=== PATIENT | male | born 1970 | race Hispanic/Latino ===

== ENCOUNTER 2021-09-26 00:34 | Emergency (ER) | payer BC, OTHER ==
[~2021-09-26] VITALS: Ht 170.2 cm; Wt 101.6 kg
[2021-09-26 01:16] LABS: BASOPHILS % (AUTO) 0.3 % (0.0-5.0); HEMATOCRIT 42.9 % (42-54); LYMPHOCYTES % (AUTO) 21.4 % (21.0-51.0); MEAN CORPUSCULAR HEMOGLOBIN 28.2 pg (27.0-33.0); MEAN CORPUSCULAR HGB CONC 33.3 g/dL (32.0-36.0); MEAN CORPUSCULAR VOLUME 84.6 fL (79-99); MONOCYTES % (AUTO) 7.3 % (3.0-13.0); NEUTROPHILS % (AUTO) 69.6 % (40.0-77.0); PLATELET COUNT (AUTO) 265 K/uL (130-400); RED BLOOD CELL COUNT(AUTO) 5.07 MIL/uL (4.50-6.20); RED CELL DISTRIBUTION WIDTH 13.6 % (11.0-15.5); WHITE BLOOD COUNT (AUTO) 7.9 K/uL (4.8-10.8)
[2021-09-26 01:29] LABS: CREATININE 1.3 mg/dL (0.5-1.5); POTASSIUM 3.4 mmol/L (3.5-5.1)
[2021-09-26 01:33] LABS: ALBUMIN 3.8 g/dL (3.5-5.0); BILIRUBIN,TOTAL 0.5 mg/dL (0.2-1.0); TOTAL PROTEIN, SERUM 7.4 g/dL (6.0-8.3)
[2021-09-26 01:49] LABS: INR 0.98 (0.85-1.15); PROTHROMBIN TIME 10.7 SEC (9.6-11.6)
[2021-09-26 01:50] LABS: PARTIAL THROMBOPLASTIN TIME 28.5 SEC (26.3-35.5)
[2021-09-26 02:06] LABS: INFLUENZA TYPE A NEGATIVE FOR TYPE A (NEG)
[2021-09-26 02:07] LABS: INFLUENZA TYPE B NEGATIVE FOR TYPE B (NEG)
[2021-09-26] MEDS ORDERED: ONDANSETRON 4MG INJ IVP ONE (04:00)
[2021-09-26] MEDS ORDERED: 0.9%NACL 1000ML 1,000 ML IV ONE ×2 (04:00)
[2021-09-26 05:12] VITALS: BP 122/84
[2021-09-26 05:38] LABS: APPEARANCE,URINE Clear (CLEAR); BILIRUBIN,URINE Negative (NEGATIVE); COLOR,URINE Yellow (YELLOW); GLUCOSE, URINE (UA) Negative (NEGATIVE); KETONES,URINE Trace mg/dL (NEGATIVE); LEUKOCYTE ESTERASE ,URINE Negative (NEGATIVE); NITRATE,URINE Negative (NEGATIVE); OCCULT BLOOD,URINE Negative (NEGATIVE); PH,URINE 5.5 (5.0-8.0); PROTEIN,URINE Trace mg/dL (NEGATIVE)
[2021-09-26 05:45] LABS: AMPHET/METH SCREEN,URINE NEGATIVE (NEGATIVE); BARBITURATE SCREEN, URINE NEGATIVE (NEGATIVE); BENZODIAZEPINES SCREEN,URINE NEGATIVE (NEGATIVE); CANNABINOID SCREEN,URINE NEGATIVE (NEGATIVE); COCAINE SCREEN,URINE NEGATIVE (NEGATIVE); OPIATE SCREEN,URINE NEGATIVE (NEGATIVE); PHENCYCLIDINE SCREEN,URINE NEGATIVE (NEGATIVE)
[2021-09-26 05:49] LABS: RBC,URINE 0-1 /HPF (0-1)
[2021-09-26] MEDS ORDERED: BENZ-39 PO (05:49)
[2021-09-26] MEDS ORDERED: ONDA4TAB10 PO (05:49)
[2021-09-26] MEDS ORDERED: METO-296 PO (05:49)
[2021-09-26 05:50] LABS: BACTERIA,URINE Rare /HPF (None Seen); SQUAMOUS EPITHELIAL CELL,UR 0-2 /HPF (0-2); WBC,URINE 0-1 /HPF (0-1)
== END 2021-09-26 05:58 | disposition home or self-care (01) ==
LOC: EDH 00:34
DX: B34.9 Viral infection, unspecified (principal); E86.9 Volume depletion, unspecified; I10 Essential (primary) hypertension; Z20.822 Contact with and (suspected) exposure to COVID-19; Z79.899 Other long term (current) drug therapy
CPT/HCPCS: 36415; 71045; 80053; 80305; 81001; 83690; 84484; 85025; 85610; 85730; 87635; 87804 ×2; 96361 ×2; 96374; 99284; C9803; J2405; J7030 ×2

== ENCOUNTER 2021-12-23 07:00 | Day surgery (SDC) | payer OTHER ==
[2021-12-20 10:23] VITALS: BP 139/86
[2021-12-20 10:27] LABS: BASOPHILS % (AUTO) 0.5 % (0.0-5.0); EOSINOPHILS % (AUTO) 1.6 % (0.0-8.0); HEMATOCRIT 44.4 % (42-54); LYMPHOCYTES % (AUTO) 18.6 % (21.0-51.0); MEAN CORPUSCULAR HEMOGLOBIN 28.2 pg (27.0-33.0); MEAN CORPUSCULAR HGB CONC 32.7 g/dL (32.0-36.0); MEAN CORPUSCULAR VOLUME 86.2 fL (79-99); MONOCYTES % (AUTO) 6.1 % (3.0-13.0); NEUTROPHILS % (AUTO) 72.6 % (40.0-77.0); PLATELET COUNT (AUTO) 236 K/uL (130-400); RED BLOOD CELL COUNT(AUTO) 5.15 MIL/uL (4.50-6.20); RED CELL DISTRIBUTION WIDTH 13.6 % (11.0-15.5); WHITE BLOOD COUNT (AUTO) 6.2 K/uL (4.8-10.8)
[2021-12-20 10:39] LABS: CREATININE 0.9 mg/dL (0.5-1.5)
[~2021-12-23] VITALS: Ht 167.6 cm; Wt 102.2 kg
[2021-12-23] VITALS (16 sets, daily range): BP systolic 90–146; BP diastolic 51–80
[~2021-12-23 07:00] MED LIST: CEFAZOLIN SODIUM 1 GM VIAL IVP SCH; CHOL100046 PO; HYDR25TA PO; LOSA100T58 PO; MULT-1258 PO
[2021-12-23] MEDS ORDERED: LACTATED RINGERS 1000ML 1,000 ML IV ONE (07:22)
[2021-12-23] MEDS ORDERED: DEXAMETHASONE SOD PHOSPHATE 10MG/ML 1ML VIAL ONE (07:30)
[2021-12-23] MEDS ORDERED: LIDOCAINE PF 100MG/5ML (2%) SYRINGE 5ML ONE (07:30)
[2021-12-23] MEDS ORDERED: ONDANSETRON 4MG INJ ONE (07:30)
[2021-12-23] MEDS ORDERED: MIDAZOLAM HCL 1 MG/ML 2ML VIAL ONE (07:30)
[2021-12-23] MEDS ORDERED: SUCCINYLCHOLINE CHLORIDE 20 MG/ML 10 ML VIAL ONE (07:30)
[2021-12-23] MEDS ORDERED: NEOSTIGMINE 5MG/5ML SYR IV ONE (07:31)
[2021-12-23] MEDS ORDERED: GLYCOPYRROLATE 1 MG/5 ML SYRINGE ONE (07:31)
[2021-12-23] MEDS ORDERED: PROPOFOL 10 MG/ML 20ML VIAL IV ONE ×2 (07:31→08:53)
[2021-12-23] MEDS ORDERED: ROCURONIUM 10MG/1ML SYR 10 MG/ML ML ONE (07:31)
[2021-12-23] MEDS ORDERED: FENTANYL CITRATE PF 50 MCG/1 ML 2ML VIAL ONE ×2 (07:32→09:15)
[2021-12-23] MEDS ORDERED: NAPR220C15 PO (07:33)
[2021-12-23] MEDS ORDERED: ROPIVACAINE 0.5% 5MG/ML 30ML IJ ONE (07:53)
[2021-12-23] MEDS ORDERED: CEPH500B PO (09:12)
[2021-12-23] MEDS ORDERED: ACET1TAB25 PO (09:12)
[2021-12-23] MEDS ORDERED: KETOROLAC 30MG VIAL (30MG/ML) ONE (10:51)
== END 2021-12-23 11:50 | disposition home or self-care (01) ==
LOC: DAH 07:00
PROVIDERS: ATTEND Orthopaedic Surgery
DX: M23.321 Other meniscus derangements, posterior horn of medial meniscus, right knee (principal); M23.341 Other meniscus derangements, anterior horn of lateral meniscus, right knee; Z20.822 Contact with and (suspected) exposure to COVID-19; M17.11 Unilateral primary osteoarthritis, right knee; G47.33 Obstructive sleep apnea (adult) (pediatric); I10 Essential (primary) hypertension; K21.9 Gastro-esophageal reflux disease without esophagitis; Z98.890 Other specified postprocedural states; Z87.891 Personal history of nicotine dependence; Z83.3 Family history of diabetes mellitus; Z82.49 Family history of ischemic heart disease and other diseases of the circulatory system
CPT/HCPCS: 29880; 36415; 80048; 85025; 87635; A4215; A4221; A4222; A4223; A4649; A4657; A4663; A4930 ×2; A5120; A6223; C9803; J0330; J0690; J1100; J1885; J2001; J2250; J2405; J2704 ×2; J2710; J3010 ×2; J3490; J7120; J2795

== ENCOUNTER 2024-03-23 23:09 | Emergency (ER) | payer OTHER ==
[~2024-03-23] VITALS: Ht 167.6 cm; Wt 93.0 kg
[~2024-03-23 23:09] MED LIST changes: +ACET-2079 PO; -CEFAZOLIN SODIUM 1 GM VIAL IVP SCH; +CEPH500B PO; -LOSA100T58 PO; +LOSA100T59 PO; +NAPR220C15 PO
[2024-03-23 23:10] VITALS: BP 115/71; PULSE 66; RESP 20
[2024-03-23] MEDS: LIDOCAINE HCL 1% 20 ML VIAL INJ STA (23:36)
[2024-03-23] MEDS: LIDOCAINE HCL 1% 20 ML VIAL INJ SCH (23:36)
[2024-03-24] MEDS ORDERED: CEPH500B PO (00:20)
[2024-03-24] MEDS: NEOMY SULF/BACITRA/POLYMYXIN B 1 EACH PACKET TP STA (00:20)
[2024-03-24] MEDS: DIPH,PERTUSS(ACELL),TET VAC/PF 0.5 ML VIAL IM ONE (00:24)
== END 2024-03-24 00:28 | disposition home or self-care (01) ==
LOC: EDH 23:09
DX: S61.011A Laceration without foreign body of right thumb without damage to nail, initial encounter (principal); I10 Essential (primary) hypertension; X78.8XXA Intentional self-harm by other sharp object, initial encounter; Y93.89 Activity, other specified; Y92.89 Other specified places as the place of occurrence of the external cause; Y99.8 Other external cause status
CPT/HCPCS: 12002

== ENCOUNTER 2024-05-15 19:12 | Emergency (ER) | payer OTHER ==
[~2024-05-15] VITALS: Ht 162.6 cm; Wt 92.5 kg
[2024-05-15 19:29] LABS: APPEARANCE,URINE CLEAR (CLEAR); BILIRUBIN,URINE NEGATIVE (NEGATIVE); COLOR,URINE YELLOW (YELLOW); GLUCOSE, URINE (UA) NEGATIVE (NEGATIVE); KETONES,URINE NEGATIVE (NEGATIVE); LEUKOCYTE ESTERASE ,URINE NEGATIVE Leu/uL (NEGATIVE); NITRATE,URINE NEGATIVE (NEGATIVE); OCCULT BLOOD,URINE NEGATIVE (NEGATIVE); PROTEIN,URINE 10 mg/dL (NEGATIVE); UROBILINOGEN,URINE 0.2 mg/dL (0.2-1.0)
[2024-05-15 19:36] LABS: ADD UA MICROSCOPIC YES
[2024-05-15 19:38] LABS: BACTERIA,URINE RARE /HPF (None Seen); MUCUS,URINE RARE LPF (None Seen); SQUAMOUS EPITHELIAL CELL,UR RARE /HPF (0-2); WBC,URINE 0-1 /HPF (0-1)
[2024-05-15 19:41] LABS: BASOPHILS # (AUTO) 0.02 K/uL (0.00-0.20); BASOPHILS % (AUTO) 0.3 % (0.0-5.0); EOSINOPHILS # (AUTO) 0.07 K/uL (0.00-0.70); EOSINOPHILS % (AUTO) 0.9 % (0.0-8.0); HEMATOCRIT 42.4 % (42-54); IMMATURE GRANULOCYTE ABSOLUTE 0.02 K/uL (0-1); LYMPHOCYTES # (AUTO) 1.2 K/uL (1.0-4.8); LYMPHOCYTES % (AUTO) 15.6 % (21.0-51.0); MEAN CORPUSCULAR HEMOGLOBIN 29.3 pg (27.0-33.0); MEAN CORPUSCULAR HGB CONC 34.2 g/dL (32.0-36.0); MEAN CORPUSCULAR VOLUME 85.7 fL (79-99); MONOCYTES # (AUTO) 0.4 K/uL (0.1-1.0); MONOCYTES % (AUTO) 5.5 % (3.0-13.0); NEUTROPHILS # (AUTO) 5.8 K/uL (1.8-7.7); NEUTROPHILS % (AUTO) 77.4 % (40.0-77.0); PLATELET COUNT (AUTO) 241 K/uL (130-400); RED BLOOD CELL COUNT(AUTO) 4.95 MIL/uL (4.50-6.20); RED CELL DISTRIBUTION WIDTH 13.3 % (11.0-15.5); WHITE BLOOD COUNT (AUTO) 7.5 K/uL (4.8-10.8)
[2024-05-15 19:53] LABS: ALBUMIN 3.9 g/dL (3.5-5.0); BILIRUBIN,TOTAL 0.7 mg/dL (0.2-1.0); CREATININE 0.9 mg/dL (0.5-1.3); POTASSIUM 3.1 mmol/L (3.5-5.1); TOTAL PROTEIN, SERUM 7.2 g/dL (6.0-8.3)
[2024-05-15] MEDS: 0.9%NACL 1000ML 1,000 ML IV ONE (20:52)
[2024-05-15] MEDS: POTASSIUM BICARB/CIT AC 25 MEQ TABLET.EFF PO ONE (20:52)
[2024-05-15] MEDS: ACETAMINOPHEN 500 MG TABLET PO ONE (20:53)
[2024-05-15] MEDS: KETOROLAC 30MG VIAL (30MG/ML) IVP ONE (20:53)
[2024-05-15 22:05] VITALS: BP 120/70; PULSE 74; RESP 22; O2SAT 95
== END 2024-05-15 22:10 | disposition home or self-care (01) ==
LOC: EDH 19:12
DX: R51.9 Headache, unspecified (principal); E87.6 Hypokalemia; I10 Essential (primary) hypertension; Z79.899 Other long term (current) drug therapy
CPT/HCPCS: 99285; 96374; 70450; 84484; 80053; 85025; 81001; 36415; 93005; J7030; J1885

== ENCOUNTER 2024-09-26 00:04 | Emergency (ER) | payer OTHER ==
[~2024-09-26] VITALS: Ht 167.6 cm; Wt 95.3 kg
--- NOTE | 2024-09-26 00:07 | ERN ---
ED Note History of Present Illness Stated Complaint: COUGH CHEST PAIN Chief Complaint: Chest Pain Time Seen by MD: 00:06 Time Seen by Midlevel: 00:06 Dictation: Patient is a 54-year-old male with a history of hypertension, bilateral knee surgery who presents to the emergency department with complaints of a nonproductive cough, chest pain onset two weeks ago. Patient reports pain is on and off and only last a few seconds. Reports pain worse with palpation. Patient denies any fevers, , shortness of breath. Allergies: Coded Allergies: fish oil (Unverified Allergy, Unknown, 09/26/24) Home Meds Active Scripts Cephalexin Monohydrate (Keflex) 500 Mg Cap, 500 MG PO TID for 5 Days, #15 CAP Prov:SUSY LLOYD 03/24/24 Acetaminophen with Codeine (Acetaminophen-Cod #3 Tablet) 1 Each Tablet, 1 EACH PO Q6HPRN PRN for ACUTE POST-OP PAIN (G89.18), #28 TAB 0 Refills Prov:SARAH RAY MD 12/23/21 Cephalexin Monohydrate (Keflex) 500 Mg Cap, 500 MG PO Q8H for 2 Days, #7 CAP 0 Refills Prov:SARAH RAY MD 12/23/21 Reported Medications Naproxen Sodium (Aleve) 220 Mg Capsule, 220 MG PO AD PRN for PAIN, CAP 12/23/21 Cholecalciferol (Vitamin D3) (Vitamin D3) 25 Mcg Capsule, 25 MCG PO DAILY, CAP 12/20/21 Multivits-Min/FA/Lycopene/Lut (Centrum Silver Tablet) 1 Each Tablet, 1 EACH PO DAILY, TAB 12/20/21 Losartan Potassium (Losartan Potassium) 100 Mg Tablet, 100 MG PO DAILY, TAB 12/20/21 Hydrochlorothiazide (Hydrochlorothiazide) 25 Mg Tablet, 25 MG PO DAILY, TAB 12/20/21 Past Medical History Past Medical History: Hypertension Surgical History: Other Surgical History Other: BILATERAL KNEE RN Note Reviewed/Agreed w/PFSH: Yes Review of System Dictation Constitutional: Negative for fever,chills, and weight loss Eyes: Negative for injury, pain,redness, and discharge ENT: Negative for injury,pain or swelling Cardiovascular: Negative for palpitations, and edema positive for chest pain Respiratory: Negative for shortness of breath, and wheezing, positive for cough Abdomen/GI: Negative for abdominal pain, nausea, vomiting, diarrhea, and constipation Back: Negative for injury and pain : Negative for injury, bleeding and discharge MS/Extremity: Negative for injury and deformity Skin: Negative for rash, and discoloration Neuro: Negative for headache, weakness, numbness, tingling, and seizure Psych: Negative for suicide ideation, homicidal ideation, and hallucinations Initial Vital Sign VS Vital Signs Date Time Temp Pulse Resp B/P (MAP) Pulse Ox O2 Delivery O2 Flow Rate FiO2 09/26/24 00:05 97.2 101 18 142/83 98 Room Air Physical Exam Dictation Vital Signs reviewed General Appearance: Alert, oriented x 3, no acute distress, well developed, nourished. Head and Face: non-traumatic. Eyes: PERRL, pink conjunctivas, eyelid no trauma, anterior chamber with arcus senilis. Ears: Pinnas intact and no signs of trauma or erythema ear canals clear and no discharge TM no erythema Nose: No discharge, no bleeding. Oropharynx: Mouth normal, tongue pink. pharynx clear,no erythema, tonsils no exudates, no abscesses noted, mucous membrane moist Neck: Supple, non-tender, no thyromegaly, no masses, no JVD, no bruits Breast:Deferred Chest:No tenderness, no crepitus, no paradoxical movement, no retractions Lungs:Clear, well-ventilated, symmetric, no rales, no wheezing, no rhonchi, no stridor, good breath sounds bilaterally Heart: Regular rate, regular rhythm, no murmur, no gallops Vascular: no peripheral edema, Abdomen: Soft, positive bowel sounds, nondistended, no guarding, nontender, no rebound, no masses no hepatomegaly, no splenomegaly, no Daniels's sign, no hernias. Rectal: Deferred Genital: Deferred Neurological: Normal speech, motor function intact, sensory function intact Musculoskeletal: Neck nontender, full range of motion, back nontender, full rang e of motion, Extremities: nontender, full range of motion Skin: Color pink, dry, no turgor, no rash, no lacerations, no abrasions, no contusions. Lymphatic: Deferred Results (Laboratory/Radiology) Laboratory/Radiology Laboratory Tests Test 09/26/24 00:10 09/26/24 00:23 Influenza Type A Antigen Negative For Type A Influenza Type B Antigen Negative For Type B SARS-CoV-2, RNA, NAAT NEGATIVE SARS CoV-2 White Blood Count 10.7 K/uL (4.8-10.8) Red Blood Count 5.09 MIL/uL (4.50-6.20) Hemoglobin 14.7 g/dL (14.0-18.0) Hematocrit 43.4 % (42-54) Mean Corpuscular Volume 85.3 fL (79-99) Mean Corpuscular Hemoglobin 28.9 pg (27.0-33.0) Mean Corpuscular Hemoglobin Concent 33.9 g/dL (32.0-36.0) Red Cell Distribution Width 13.3 % (11.0-15.5) Platelet Count 224 K/uL (130-400) Mean Platelet Volume 9.9 fL (7.5-10.5) Immature Granulocyte % (Auto) 0.5 % (0-1) Neutrophils (%) (Auto) 85.5 % (40.0-77.0) H Lymphocytes (%) (Auto) 6.6 % (21.0-51.0) L Monocytes (%) (Auto) 6.8 % (3.0-13.0) Eosinophils (%) (Auto) 0.3 % (0.0-8.0) Basophils (%) (Auto) 0.3 % (0.0-5.0) Neutrophils # (Auto) 9.1 K/uL (1.8-7.7) H Lymphocytes # (Auto) 0.7 K/uL (1.0-4.8) L Monocytes # (Auto) 0.7 K/uL (0.1-1.0) Eosinophils # (Auto) 0.03 K/uL (0.00-0.70) Basophils # (Auto) 0.03 K/uL (0.00-0.20) Absolute Immature Granulocyte (auto 0.05 K/uL (0-1) Nucleated Red Blood Cells 0.0 % (0.0-0.19) White Cell Morphology Comment See comments Prothrombin Time 10.9 SEC (9.6-11.6) Prothromb Time International Ratio 0.97 (0.85-1.15) Activated Partial Thromboplast Time 29.7 SEC (26.3-35.5) Sodium Level 138 mmol/L (136-145) Potassium Level 3.6 mmol/L (3.5-5.1) Chloride Level 103 mmol/L (101-111) Carbon Dioxide Level 27 mmol/L (21-32) Blood Urea Nitrogen 16 mg/dL (7-18) Creatinine 0.8 mg/dL (0.5-1.3) Glomerular Filtration Rate Calc 105 mL/min (>90) Random Glucose 93 mg/dL (70-105) Total Calcium 8.6 mg/dL (8.5-10.1) Total Creatine Kinase 176 U/L (21-232) Troponin I High Sensitivity 5 ng/L (4-75) B-Type Natriuretic Peptide 10 pg/mL (0-100) Labs Reviewed?: Yes EKG Comment: EKG 09/26/2024 0008 ventricular rate 95, regular rate and rhythm, normal sinus rhythm, no STEMI ED Course ED Course Orders Procedure Category Date Status Time Covid Rna Naat LAB 09/26/24 Complete 00:06 Influenza Type A & B, LAB 09/26/24 Complete Rapid 00:06 Chest 1vw RAD 09/26/24 Taken 00:06 12 Lead Ekg Tracing- EKG 09/26/24 Logged Technical 00:06 Troponin I High LAB 09/26/24 Complete Sensitivity 00:06 Cbc With Differential LAB 09/26/24 Complete 00:06 Basic Metabolic Panel LAB 09/26/24 Complete 00:06 B-Type Natriuretic LAB 09/26/24 Complete Peptide 00:06 Pt And Ptt LAB 09/26/24 Complete 00:06 Creatine Kinase, Total LAB 09/26/24 Complete 00:06 Aspirin 325mg Tab PHA 09/26/24 Complete (Aspirin 325mg Tab) 00:30 Benzonatate 100 Mg PHA 09/26/24 Complete Capsule (Tessalon 100 00:30 Current Medications Medications (Trade) Dose Ordered Sig/Jerardo Route PRN Reason Start Time Stop Time Status Last Admin Dose Admin Aspirin (Aspirin 325mg Tab) 325 mg ONCE ONCE PO 09/26/24 00:30 09/26/24 00:31 DC 09/26/24 00:55 Benzonatate (Tessalon 100mg Caps) 100 mg ONCE ONCE PO 09/26/24 00:30 09/26/24 00:31 DC 09/26/24 00:55 Vital Signs Date Time Temp Pulse Resp B/P (MAP) Pulse Ox O2 Delivery O2 Flow Rate FiO2 09/26/24 00:05 97.2 101 18 142/83 98 Room Air HEART Score Response (Comments) Value History: Low suspicion (0) 0 EKG: Normal 0 Age: 45-65yrs (+1) 1 Risk Factors: 1-2 risk factors (+1) 1 Initial Troponin: Normal limit (0) 0 Total 2 Medical Decision Making MDM The Patient is a 54-year-old male with a history of hypertension, bilateral knee surgery who presents to the emergency department with complaints of a nonproductive cough, chest pain onset two weeks ago. Patient reports pain is on and off and only last a few seconds. Reports pain worse with palpation. Patient denies any fevers, , shortness of breath. CBC showed no leukocytosis, no anemia, chemistry showed no electrolyte imbalance, normal renal function, negative troponin I. Chest x-ray with no acute cardiopulmonary pathology. [facility] Patient agrees with discharge. Patient in no acute distress, nontoxic appearance. Differential diagnosis: ACS, pneumonia, pneumothorax, upper respiratory infection Need for hospitalization: Patient does not meet criteria for hospitalization. There are no social concerns with this patient. DX & DISP Disposition: Discharge Departure Impression: Primary Impression: Chest pain Additional Impressions: Costochondritis, Cough Condition: Stable Scripts Benzonatate (Tessalon Perles) 100 Mg Cap 1-2 CAP PO Q4H for cough for 5 Days, #60 CAP 0 Refills Prov: DUC NIEVES CRAFT WORKER 09/26/24 Additional Instructions: FOLLOW-UP WITH PRIMARY CARE PROVIDER IN 1 TO 2 DAYS. TAKE MEDICATIONS DIRECTED HERE IN THE EMERGENCY ROOM. OKAY TO CONTINUE HOME MEDICATIONS UNLESS OTHERWISE DISCUSSED DURING YOUR VISIT IN THE EMERGENCY ROOM TODAY. RETURN TO YOUR NEAREST EMERGENCY ROOM IF SYMPTOMS WORSEN OR IF THERE IS NO IMPROVEMENT. CALL 911 IF YOU NEED IMMEDIATE ASSISTANCE. TAKE TYLENOL OR MOTRIN [id number] NEEDED AND IF NO CONTRAINDICATIONS ARE PRESENT. INCREASE ORAL HYDRATION. A WOUND CULTURE OR URINE CULTURE WAS ORDERED HERE IN THE EMERGENCY ROOM DEPARTMENT PLEASE FOLLOW-UP WITH PRIMARY CARE PROVIDER AND ADVISE THEM TO GET REPEAT PORTS FROM OUR FACILITY. IF YOU HAD ANY CARLEE WRAP/SPLINTS THAT WERE APPLIED HERE, PLEASE DO NOT REMOVE THEM UNTIL YOU SEE YOUR PRIMARY CARE OR SPECIALTY. Referrals: FRANCISCO J GOLDMAN (PCP) Time of Disposition: 02:01 I have reviewed the case, and I agree with, Diagnosis and Plan EDUIN HARPER MD Sep 26, 2024 00:07 DUC NIEVES Sep 26, 2024 00:36
--- NOTE | 2024-09-26 00:09 | NUR ---
COVID, AND FLU SWABS COLLECTED AND SENT
[2024-09-26 00:35] LABS: CREATININE 0.8 mg/dL (0.5-1.3); POTASSIUM 3.6 mmol/L (3.5-5.1)
[2024-09-26 00:36] LABS: SARS-CoV-2, RNA, NAAT NEGATIVE SARS CoV-2 (NEGATIVE)
[2024-09-26 00:39] LABS: INR 0.97 (0.85-1.15); PROTHROMBIN TIME 10.9 SEC (9.6-11.6)
[2024-09-26 00:41] LABS: PARTIAL THROMBOPLASTIN TIME 29.7 SEC (26.3-35.5)
[2024-09-26 00:42] LABS: INFLUENZA TYPE A Negative For Type A (NEGATIVE); INFLUENZA TYPE B Negative For Type B (NEGATIVE)
[2024-09-26] MEDS: BENZONATATE 100 MG CAPSULE PO ONE (00:55)
[2024-09-26] MEDS: ASPIRIN 325MG TAB PO ONE (00:55)
[2024-09-26 01:05] LABS: BASOPHILS # (AUTO) 0.03 K/uL (0.00-0.20); BASOPHILS % (AUTO) 0.3 % (0.0-5.0); EOSINOPHILS # (AUTO) 0.03 K/uL (0.00-0.70); EOSINOPHILS % (AUTO) 0.3 % (0.0-8.0); HEMATOCRIT 43.4 % (42-54); IMMATURE GRANULOCYTE ABSOLUTE 0.05 K/uL (0-1); LYMPHOCYTES # (AUTO) 0.7 K/uL (1.0-4.8); LYMPHOCYTES % (AUTO) 6.6 % (21.0-51.0); MEAN CORPUSCULAR HEMOGLOBIN 28.9 pg (27.0-33.0); MEAN CORPUSCULAR HGB CONC 33.9 g/dL (32.0-36.0); MEAN CORPUSCULAR VOLUME 85.3 fL (79-99); MONOCYTES # (AUTO) 0.7 K/uL (0.1-1.0); MONOCYTES % (AUTO) 6.8 % (3.0-13.0); NEUTROPHILS # (AUTO) 9.1 K/uL (1.8-7.7); NEUTROPHILS % (AUTO) 85.5 % (40.0-77.0); PLATELET COUNT (AUTO) 224 K/uL (130-400); RED BLOOD CELL COUNT(AUTO) 5.09 MIL/uL (4.50-6.20); RED CELL DISTRIBUTION WIDTH 13.3 % (11.0-15.5); WHITE BLOOD COUNT (AUTO) 10.7 K/uL (4.8-10.8)
[2024-09-26 01:25] LABS: B-TYPE NATRIURETIC PEPTIDE 10 pg/mL (0-100)
[2024-09-26] MEDS ORDERED: BENZ-39 PO (02:02)
[2024-09-26 02:50] VITALS: BP 145/81; PULSE 92; RESP 16; TEMP 97.4; O2SAT 98
--- NOTE | 2024-09-26 05:20 | EKG ---
[facility] Test Date: 2024-09-26 Test Time: 00:08:37 Pat Name: LUCINDA MARTINEZ Department: [facility] Room: Gender: M Mill Recorder: [id number] : 1970 Requested By: EDUIN HARPER Order Number: [id number] Reading MD: Miguelina Shah Measurements Intervals [place] Rate: 95 P: 62 DC: 142 QRS: 25 QRSD: 89 T: 55 QT: 330 QTc: 415 Interpretive Statements Sinus rhythm Compared to ECG 05/15/2024 19:26:15 No significant changes Electronically Signed On 09-26-2024 18:09:42 ASSISTANT BRANCH MANAGER by Miguelina Shah Please click the below link to view image of tracing.
--- NOTE | 2024-09-26 08:39 | HMCIMG ---
Exam Type: CHEST 1VW Clinical Information: COUGH, CP Comparison: None Findings: The lungs are clear of infiltrates. The heart is normal in size. The bony and soft tissue structures of the chest are unremarkable. Impression: Clear lungs.
== END 2024-09-26 02:51 | disposition home or self-care (01) ==
LOC: EDH 00:04
DX: M94.0 Chondrocostal junction syndrome [Tietze] (principal); R07.89 Other chest pain; R05.9 Cough, unspecified; I10 Essential (primary) hypertension; Z79.899 Other long term (current) drug therapy; Z20.822 Contact with and (suspected) exposure to COVID-19
CPT/HCPCS: 36415; 71045; 80048; 82550; 83880; 84484; 85025; 85610; 85730; 87635; 87804; 93005; 99285